=== PATIENT | female | born 1975 | race Caucasian/White ===

== ENCOUNTER 2016-11-19 04:08 | Emergency (ER) | payer OTHER ==
--- NOTE | 2016-11-19 19:15 | ER ---
ADMIT: 11/19/2016 RM/LOC: ER [facility] MR#: [id number] [facility] [id number] ALLYSON CHAN [address] [place] [address] Emergency Room Report SEX: F AGE: 41 : 1975 DATE: 11/19/2016 The patient is a 41-year-old female, in police custody, allegedly took Xanax powder during booking procedure tonight. Exam remarkable for nontoxic, afebrile female. Tox screen positive for amphetamine and marijuana. Remainder of [facility] lab all within normal limits. Follow up with Dr. Jurado as needed. Released in police custody. Carter Salazar MD/ modl JOB #: [id number] CC: Carter Salazar MD, Attending Physician UNKNOWN, Family Physician Al Jurado MD
--- NOTE | 2016-11-20 11:16 | NUR ---
Received [facility] person referral. Pt was brought in by police and then taken to prison.
== END 2016-11-19 05:50 ==
LOC: ER 04:08
DX: F12.10 Cannabis abuse, uncomplicated (principal); F15.10 Other stimulant abuse, uncomplicated; F17.210 Nicotine dependence, cigarettes, uncomplicated; Z90.710 Acquired absence of both cervix and uterus; Z98.890 Other specified postprocedural states